=== PATIENT | female | born 1990 | race Caucasian/White ===

== ENCOUNTER 2017-09-28 14:38 | Outpatient (CLI) | payer OTHER ==
[~2017-09-28] VITALS: Ht 165.1 cm; Wt 208.0 kg
[~2017-09-28 14:38] MED LIST: PRENTAB26 PO
--- NOTE | 2017-09-28 16:47 | HISTORY & PHYSICAL EXAMINATION ---
DATE OF ADMISSION: 09/28/2017 HISTORY OF PRESENT ILLNESS: The patient is a 27-year-old G3, P1, due date 12/16/2017 making her at 28 weeks and 5 days. The patient is with di-di twins. She has had an unremarkable course, was seen today in the office by Dr. Kim. The patient had complained of possible wetness in her underwear. She was examined, Nitrazine and ferning were negative. Pelvic exam by Dr. Kim's exam, reports patient may be 3-4 cm with bulging membranes. The patient was given 1 dose of betamethasone and sent to labor and delivery. On arrival to labor and delivery, she had no shortness of breath, no chills, no fever. There was minimal contractions seen on the monitor. COURSE: Unremarkable except for history of di-di twin gestation. The patient has seen maternal medicine. Blood type is A negative and received RhoGAM on 09/28/2017. PAST MEDICAL HISTORY: History of a heart murmur as a child. PAST SURGICAL HISTORY: The patient has history of dental surgery. SOCIAL HISTORY: The patient denies tobacco, drug or alcohol use. 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 ALLERGIES: No known drug allergies. PHYSICAL EXAMINATION: GENERAL: Well-developed, well-nourished white female, in no acute distress. HEART: S1, S2, regular rhythm and rate. LUNGS: Clear to auscultation bilaterally. ABDOMEN: Gravid. Twin gestation pel; 2cm/50/-3 EXTREMITIES: No cyanosis, clubbing or edema. ASSESSMENT AND PLAN: A 27-year-old G3, P1 at 28 weeks and 5 days. The patient is seen in the office and found to have cervical dilation of 3-4 cm. She received 1 dose of betamethasone. She was here in labor and delivery with irregular contractions.her pelvic exam by me is 2/50/-3 Plan therefore is to admit patient for monitoring and a second dose of betamethasone. Will start pt with magnesium sulphate. As long as the patient continues to be stable, she will be kept in house, if she becomes unstable will consider transferring to [facility]. [facility]
[2017-09-28 16:53] LABS: BASO % 0.1 %; BASO ABS # 0.01 K/uL (0-0.2); EOS % 0.2 %; EOS ABS # 0.03 K/uL (0-0.5); IG# 0.06 K/uL (0.00-0.02); LYMPH % 9.1 %; LYMPH ABS # 1.18 K/uL (1.2-3.4); MEAN CELL VOLUME 85.1 fL (80-100); MEAN CORPUSCULAR HEMOGLOBIN 28.4 pg (25-34); MEAN CORPUSCULAR HGB CONC 33.3 g/dl (32-36); MEAN PLATELET VOLUME 10.4 fL (7.4-10.4); MONO % 2.2 %; MONO ABS # 0.28 K/uL (0.11-0.59); NEUT % 87.9 %; NEUT ABS # 11.45 K/uL (1.4-6.5); PLATELET COUNT 225 K/uL (130-400); RED CELL DISTRIBUTION WIDTH CV 13.3 % (11.5-14.5); RED CELL DISTRIBUTION WIDTH SD 40.9 fL (36.4-46.3); WHITE BLOOD COUNT 13.01 K/uL (4.8-10.8)
[2017-09-28] MEDS ORDERED: MAGNESIUM SULFATE 4GM / WTR 4 GM BAG ONE (17:01)
[2017-09-28] MEDS ORDERED: MAGNESIUM SULFATE 40GM / WTR 1,000 ML IV ONE (17:05)
[2017-09-28] MEDS ORDERED: MAGNESIUM SULFATE 4GM / WTR 4 GM BAG IV STA (17:15)
[2017-09-28 17:23] LABS: BLOOD UREA NITROGEN 7 mg/dl (7-18); CALCIUM 9.1 mg/dl (8.5-10.1); CARBON DIOXIDE 23 mmol/L (21-32); CREATININE 0.77 mg/dl (0.60-1.20); GLUCOSE 98 mg/dl (70-99); POTASSIUM 4.2 mmol/L (3.5-5.1); SODIUM 136 mmol/L (136-145)
[2017-09-28] MEDS: LACTATED RINGER'S 1000ML 1,000 ML IV SCH (17:36)
[2017-09-28 18:03] VITALS: Ht 165.1 cm; Wt 208.0 kg
[2017-09-28] MEDS ORDERED: TERBUTALINE SULFATE 1 MG/ML VIAL SQ PRN (20:45)
[2017-09-28] MEDS ORDERED: TERBUTALINE SULFATE 1 MG/ML VIAL ONE (20:48)
[2017-09-29] MEDS: LACTATED RINGER'S 1000ML 1,000 ML IV SCH (04:19)
[2017-09-29] MEDS ORDERED: PRENATAL VITAMIN TAB PO STA (08:49)
[2017-09-29] MEDS ORDERED: FERROUS SULFATE 325 MG TAB PO SCH (11:30)
[2017-09-29] MEDS ORDERED: MAGNESIUM SULFATE 40GM / WTR 1,000 ML IV ONE (11:57)
[2017-09-29] MEDS ORDERED: MAGNESIUM SULFATE 40GM/ WTR 1,000 ML BAG ONE (12:08)
== END 2017-09-29 12:30 | disposition short-term general hospital (02) ==
LOC: C.LD 14:38 → C.OPB 14:38
PROVIDERS: ATTEND Obstetrics & Gynecology
DX: O62.9 Abnormality of forces of labor, unspecified (principal); O30.043 Twin pregnancy, dichorionic/diamniotic, third trimester; Z3A.28 28 weeks gestation of pregnancy

== ENCOUNTER 2017-11-02 12:13 | Inpatient (IN) | payer OTHER ==
[~2017-11-02] VITALS: Ht 165.1 cm; Wt 79.5 kg
[2017-11-02] MEDS ORDERED: [UNRECOGNIZED DRUG - OTHER] (13:30)
[2017-11-02] MEDS ORDERED: LACTATED RINGER'S 1000ML 1,000 ML IV SCH ×3 (15:11→17:16)
[2017-11-02] MEDS ORDERED: CITRIC ACID/SODIUM CITRATE 15 ML UDC PO ONE (15:15)
[2017-11-02] MEDS ORDERED: CITRIC ACID/SODIUM CITRATE 15 ML UDC ONE (15:22)
[2017-11-02] MEDS ORDERED: FENTANYL CITRATE INJ 50 MCG/1 ML 2 ML VIAL ONE (15:28)
[2017-11-02] MEDS ORDERED: MoRPHine SULFATE PF 1 MG/ML 10 ML AMP/VIAL ONE (15:28)
[2017-11-02] MEDS ORDERED: CEFAZOLIN IV 2,000 MG in SYRINGE 0 ML IV SCH (15:30)
--- NOTE | 2017-11-02 15:31 | Progress Note ---
Progress Note Date of Service Nov 02, 2017. Progress Note Pt was schedules for tramsfer to [facility] Life fight turned aroud because of bad weather I have discussed this with pt pt is jasmine 2-3 mins and her ctx are increasing in intensity she has agreed to peeweeo c/sec here risk and complications of surgery discussed with pt consent is signed
--- NOTE | 2017-11-02 15:46 | HISTORY & PHYSICAL EXAMINATION ---
DATE OF ADMISSION: 11/02/2017 HISTORY OF PRESENT ILLNESS: The patient is a 27-year-old G3, P1, due date 12/16/2017, making her 33 weeks and 5 days. The patient has di/di twin . course has been unremarkable except for history of labor. She was seen at [facility] and admitted last week where she received betamethasone. The patient was then discharged home. She was about 3 cm dilated when she was discharged home. She was seen today in followup for routine care and exam by the physician showed she was 5 cm, 50% effaced and -3 station. She was then sent to labor and delivery. The patient does not feel any contractions on admission to labor and delivery, she had irregular contractions anywhere from 2-8 minutes apart. She received IV fluids. PAST MEDICAL HISTORY: History of heart murmurs. PAST SURGICAL HISTORY: Dental surgery. SOCIAL HISTORY: The patient denies tobacco, drug or alcohol use. ALLERGIES: No known drug allergies. 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 PHYSICAL EXAMINATION: GENERAL: Well-developed, well-nourished white female in no acute distress. HEART: S1, S2, regular rhythm and rate. ABDOMEN: Gravid with twins. heart rate is category 1 x2. PELVIC: On admission shows she is 5 cm, 50% effaced, and -3. EXTREMITIES: No cyanosis, clubbing or edema. ASSESSMENT AND PLAN: A 27-year-old G3, P1 at 32 weeks and 5 days with di/di twin . The patient has had labor. She was sent marked maternal age. She was sent to [place] where she received a bit of betamethasone last week and started benefitted. Today on a routine office exam, she was found to be 5-6 cm, 50% effaced, and -3. The patient is here labor and delivery, she is having irregular contractions. We have discussed the following options: Option #1 is the patient can be delivered here via because baby A is breech and baby B is cephalic as reported to me by Dr. Lancaster who saw the patient in the office this morning. If you deliver the babies here, the mother understand that there is a small possibility that infants will be transferred to [place] and that she and babies will be . Dr. Mac, the orthotic/prosthetic clinician is aware of that. Option #2 is that she could be transferred to [facility] where she will probably also be delivered as well. The advantage for that is that she will be with her babies. There is, however, a concern that patient could rupture during transit. . I have discussed that with the patient as well. The patient initially asked that she discussed this options with her spouse. I left her the room and later on came back and she has decided to go to [place] and rather deliver there. Once again, I have made aware of the risk of rupture of membranes in transit and with polyhydramnios the risk that the babies might have cord prolapse which can lead to other complications including demise. She still wanting to take the chance and deliver in [place] because it is important for her to be with her babies after delivery. I am therefore called and spoken to Dr. Cee at [facility] who has agreed to accept the transfer. MIKEY
[2017-11-02 15:50] LABS: BASO % 0.2 %; BASO ABS # 0.02 K/uL (0-0.2); EOS % 0.8 %; EOS ABS # 0.09 K/uL (0-0.5); HEMATOCRIT 36.2 % (37-47); HEMOGLOBIN 12.2 g/dL (12.0-16.0); IG# 0.06 K/uL (0.00-0.02); LYMPH ABS # 2.27 K/uL (1.2-3.4); MEAN CORPUSCULAR HEMOGLOBIN 28.6 pg (25-34); MEAN CORPUSCULAR HGB CONC 33.7 g/dl (32-36); MONO % 5.4 %; MONO ABS # 0.65 K/uL (0.11-0.59); NEUT % 74.1 %; NEUT ABS # 8.88 K/uL (1.4-6.5); PLATELET COUNT 204 K/uL (130-400); RED CELL DISTRIBUTION WIDTH CV 15.9 % (11.5-14.5); RED CELL DISTRIBUTION WIDTH SD 49.2 fL (36.4-46.3); WHITE BLOOD COUNT 11.97 K/uL (4.8-10.8)
[2017-11-02] MEDS ORDERED: MISOPROSTOL 200 MCG TAB ONE (16:14)
[2017-11-02] MEDS ORDERED: OXYTOCIN INJ 10 UNITS/ML VIAL ONE (16:18)
[2017-11-02] MEDS ORDERED: PHENYLEPHRINE HCL INJ 10 MG/ML VIAL ONE (16:18)
[2017-11-02] MEDS ORDERED: METHYLERGONOVINE MALEATE 0.2 MG/ML AMP ONE (16:19)
[2017-11-02] MEDS ORDERED: ONDANSETRON INJ 2 MG/ML 2 ML VIAL ONE (16:23)
[2017-11-02] MEDS ORDERED: NALOXONE HCL 0.4 MG/1 ML VIAL/CARP IV PRN (17:15)
[2017-11-02] MEDS ORDERED: NALOXONE HCL INJ 1 MG in SODIUM CHLORIDE 0.9% 1000ML 1,000 ML IV PRN (17:15)
[2017-11-02] MEDS ORDERED: NALOXONE HCL INJ 0.08 MG in SYRINGE 1.8 ML IV PRN (17:15)
[2017-11-02] MEDS ORDERED: SODIUM CHLORIDE 0.9% 1000ML 1,000 ML IV PRN (17:15)
[2017-11-02] MEDS ORDERED: NO NARCOTICS OR SEDATIVES SCH (17:15)
[2017-11-02] MEDS ORDERED: ONDANSETRON INJ 2 MG/ML 2 ML VIAL IV PRN (17:15)
[2017-11-02] MEDS ORDERED: LACTATED RINGER'S 1000ML 500 ML IV PRN (17:15)
[2017-11-02] MEDS ORDERED: DiphenhydrAMINE HCL 50 MG/ML VIAL IV PRN (17:15)
[2017-11-02] MEDS ORDERED: EpHEDrine SULFATE INJ 50 MG/ML AMP IV PRN (17:15)
[2017-11-02] MEDS ORDERED: MoRPHine SULFATE 2 MG/ML CARP IV PRN (17:15)
[2017-11-02] MEDS ORDERED: NALBUPHINE HCL INJ 10 MG/ML AMP IV PRN (17:15)
[2017-11-02] MEDS ORDERED: MoRPHine SULFATE PF 1 MG/ML 10 ML AMP/VIAL EPI SCH (17:15)
--- NOTE | 2017-11-02 17:16 | [facility] Post Operative Brief Note ---
Immediate Operative Summary Operative Date Nov 02, 2017. Pre-Operative Diagnosis Twin 34 weeks; laboring Post-Operative Diagnosis Twin 34 weeks; laboring Breech/breech presentation Procedure(s) Performed Primary Section for delivery of a live female child at 1608 and a live male child at [address] Easley Body And Frame Technician Surgeon(s) Dr. Ko Estimated Blood Loss 1000CC Findings See Below finding dictated Fluids (cc crystalloids) 1250 Specimens PLACENTA (EXAM) Drains nickerson cath Anesthesia Type Spinal Complication(s) none Disposition Disposition: L&D
--- NOTE | 2017-11-02 17:17 | Anesthesiology Progress Note ---
Anesthesia Post Op Note Date & Time Nov 02, 2017 at 17:16 Notes Mental Status: alert / awake / arousable, participated in evaluation Pt Amnestic to Procedure: Yes Nausea / Vomiting: adequately controlled Pain: adequately controlled Airway Patency, RR, SpO2: stable & adequate BP & HR: stable & adequate Hydration State: stable & adequate Neuraxial Anesthesia: was administered, sensory block is resolving Anesthetic Complications: no major complications apparent
[2017-11-02] MEDS ORDERED: OXYTOCIN INJ 20 UNITS in LACTATED RINGER'S 1000ML 1,000 ML IV SCH (17:30)
[2017-11-02] MEDS ORDERED: LANOLIN OINT EXT PRN (17:30)
[2017-11-02] MEDS ORDERED: MISOPROSTOL 200 MCG TAB PR ONE (17:30)
[2017-11-02] MEDS ORDERED: BENZOCAINE 20% AER SPR 82.5 GM CAN EXT PRN (17:30)
[2017-11-02] MEDS ORDERED: SUPERCREAM 0.870 % 15GM JAR EXT PRN (17:30)
[2017-11-02] MEDS ORDERED: MAGNESIUM HYDROXIDE SUSP 30 ML UDC PO PRN (17:30)
[2017-11-02] MEDS ORDERED: HYDROCORTISONE ACETATE 25 MG SUPP PR PRN (17:30)
[2017-11-02] MEDS ORDERED: SENNA 8.6 MG TAB PO PRN (17:30)
[2017-11-02] MEDS: KETOROLAC TROMETHAMINE 30 MG/ML VIAL IV. PRN (18:09)
[2017-11-02 18:31] VITALS: Ht 165.1 cm; Wt 79.5 kg
[2017-11-02] MEDS: DOCUSATE SODIUM 100 MG CAP PO SCH (20:00)
[2017-11-02] MEDS: SIMETHICONE 80 MG CHEW PO SCH (21:00)
[2017-11-02 21:20] VITALS: BP 111/72; PULSE 94; TEMP 36.4; O2SAT 98
[2017-11-02 22:20] VITALS: O2SAT 100
[2017-11-02 23:20] VITALS: O2SAT 98
[2017-11-02 23:40] VITALS: BP 110/72; PULSE 91; TEMP 37.1; O2SAT 98
[2017-11-03] VITALS (13 sets, daily range): BP systolic 96–136; BP diastolic 67–79; PULSE 82–93; TEMP 36.4–36.9; O2SAT 98–100
[2017-11-03] MEDS: KETOROLAC TROMETHAMINE 30 MG/ML VIAL IV. PRN ×2 (00:30→06:33)
[2017-11-03] MEDS ORDERED: CEFAZOLIN IV 2,000 MG in DEXTROSE 5% 50ML 50 ML IV SCH (06:00)
[2017-11-03] MEDS ORDERED: INFLUENZA VIRUS QUAD VACCINE 0.5 ML SYR IM. ONE (07:15)
[2017-11-03] MEDS ORDERED: INFLUENZA ADMINISTRATION CHARGE ONE (07:15)
[2017-11-03] MEDS: FERROUS SULFATE 325 MG TAB PO SCH (07:34)
[2017-11-03] MEDS: DOCUSATE SODIUM 100 MG CAP PO SCH ×2 (07:34→20:12)
[2017-11-03] MEDS: SIMETHICONE 80 MG CHEW PO SCH ×4 (07:34→20:13)
[2017-11-03 07:50] LABS: BASO % 0.2 %; BASO ABS # 0.02 K/uL (0-0.2); EOS % 0.5 %; EOS ABS # 0.06 K/uL (0-0.5); HEMATOCRIT 31.6 % (37-47); HEMOGLOBIN 10.6 g/dL (12.0-16.0); IG# 0.05 K/uL (0.00-0.02); LYMPH % 12.1 %; LYMPH ABS # 1.57 K/uL (1.2-3.4); MEAN CELL VOLUME 85.6 fL (80-100); MEAN CORPUSCULAR HEMOGLOBIN 28.7 pg (25-34); MEAN CORPUSCULAR HGB CONC 33.5 g/dl (32-36); MEAN PLATELET VOLUME 10.8 fL (7.4-10.4); MONO % 7.2 %; MONO ABS # 0.93 K/uL (0.11-0.59); NEUT % 79.6 %; NEUT ABS # 10.37 K/uL (1.4-6.5); PLATELET COUNT 163 K/uL (130-400); RED CELL DISTRIBUTION WIDTH SD 49.8 fL (36.4-46.3)
--- NOTE | 2017-11-03 07:58 | OPERATIVE REPORT ---
DATE OF OPERATION: 11/02/2017 INDICATION FOR SURGERY: This is a 27-year-old G3, P1, at 33 and 5 weeks, di/di twins, presented to labor and delivery in labor. She was 5-6 cm. The patient had been a week ago. On arrival to labor and delivery, she was having contractions, was in labor. An attempt to transfer to [facility] was unsuccessful because of the weather. Decision was, therefore, made to proceed with section here at [facility]. PREOPERATIVE DIAGNOSES: 1. Twin , dichorionic/diamniotic twins at 33 and 5 days. 2. labor. 3. Breech-breech presentation. POSTOPERATIVE DIAGNOSES: Same. PROCEDURE: Primary section. SURGEON: Be Easley MD. RESIDENTIAL LEASING AGENT: Agnes Ko MD. ESTIMATED BLOOD LOSS: 1000 mL IV FLUIDS: 1250 mL URINE: 150 mL clear urine at the end of the procedure. ANESTHESIA: Spinal. SPECIMEN: Placenta and cord blood. COMPLICATIONS: None. DISPOSITION: Stable to recovery room. FINDINGS: Two live infants, baby A was female in footling breech presentation so was baby B, baby B was a male. Details of infants are in the pediatric record. Placenta was examined and found to be di/di placentation as expected. Pelvic exam and abdominal exam were unremarkable. Both ovaries and adnexa appeared grossly normal. DESCRIPTION OF THE PROCEDURE: The patient was taken to the operating room where she was prepped and draped in normal sterile fashion, a timeout was called. A Pfannenstiel incision was made and carried down to the fascia with a scalpel. Fascia was incised in the midline and extended laterally on both sides. The fascia was sharply dissected off the rectus abdominus muscles superiorly and inferiorly. The mid section of the rectus abdominus muscle was identified and was bluntly . Peritoneum was identified, entered sharply. Once inside the abdomen, an Jaydon retractor was placed for abdominal retraction. The vesicouterine peritoneum was sharply dissected off the lower segment of the uterus using Metzenbaums scissors. A low transverse incision was made on the uterus and extended laterally on both sides with bandage scissors. Amniotomy was performed on baby A, baby A was footling breech and was delivered using breech maneuvers without difficulty. Cord was clamped and handed over to the pediatric team. Same procedure was performed on baby B, amniotomy was performed on baby B, baby B also was footling breech and was delivered without difficulty. Placenta was manually removed and sent to pathology for pathologic analysis. Uterus was exteriorized and cleared of all clots and debris. Uterus was closed in 2 layers using Vicryl. There was good hemostasis at the end of the closure. Copious amount of irrigation was used to irrigate the abdomen. The vesicouterine peritoneum was reapproximated using plain suture. The Jaydon retractor was at this point removed. Inspection of the incision on the uterus, abdomen and pelvis showed good hemostasis. The peritoneum was closed in a running fashion using plain suture. The rectus abdominus muscle was reapproximated using [id number]-[id number] plain suture. There was good hemostasis again at this point. The fascia was closed using Vicryl suture in a running fashion. Subcu space was reapproximated using plain suture. Skin was closed with 4-0 Monocryl. All instruments were removed from the abdomen and accounted for x2. The patient and babies are in recovery and doing well. I attest to the content of the Intraoperative Record and any orders documented therein. Any exception s are noted below.
--- NOTE | 2017-11-03 09:10 | Surgery Progress Note ---
Surgery Progress Note Date of Service Nov 03, 2017. Subjective Post OP Day: 1 + feeling well, + ambulating Objective Vital Signs: Date Time Temp Pulse Resp B/P (MAP) Pulse Ox O2 Delivery O2 Flow Rate FiO2 11/03/17 07:25 100 Room Air 11/03/17 07:25 18 100 11/03/17 07:25 36.9 93 18 96/67 (77) 100 Room Air 11/03/17 06:20 18 98 11/03/17 05:19 20 98 11/03/17 04:42 36.6 89 20 101/67 (78) 100 Room Air 11/03/17 04:20 20 100 11/03/17 02:20 18 99 11/03/17 01:20 16 98 11/03/17 00:20 20 99 11/02/17 23:40 98 Room Air 11/02/17 23:40 37.1 91 18 110/72 (85) 98 Room Air 11/02/17 23:20 18 98 11/02/17 22:20 20 100 11/02/17 21:20 98 Room Air 11/02/17 21:20 18 98 11/02/17 21:20 36.4 94 18 111/72 (85) 98 Room Air 11/02/17 21:20 98 Room Air General Appearance: no apparent distress Abdomen: non tender, non distended, soft Incision(s): clean, dry, intact Extremities: non-tender, normal inspection, no pedal edema Laboratory Results: Results Past 24 Hours Test 11/02/17 15:26 11/03/17 07:21 Range/Units White Blood Count 11.97 13.00 4.8-10.8 K/uL Red Blood Count 4.26 3.69 4.2-5.4 M/uL Hemoglobin 12.2 10.6 12.0-16.0 g/dL Hematocrit 36.2 31.6 37-47 % Mean Corpuscular Volume 85.0 85.6 80-100 fL Mean Corpuscular Hemoglobin 28.6 28.7 25-34 pg Mean Corpuscular Hemoglobin Concent 33.7 33.5 32-36 g/dl Platelet Count 204 163 130-400 K/uL Mean Platelet Volume 11.0 10.8 7.4-10.4 fL Neutrophils (%) (Auto) 74.1 79.6 % Lymphocytes (%) (Auto) 19.0 12.1 % Monocytes (%) (Auto) 5.4 7.2 % Eosinophils (%) (Auto) 0.8 0.5 % Basophils (%) (Auto) 0.2 0.2 % Neutrophils # (Auto) 8.88 10.37 1.4-6.5 K/uL Lymphocytes # (Auto) 2.27 1.57 1.2-3.4 K/uL Monocytes # (Auto) 0.65 0.93 0.11-0.59 K/uL Eosinophils # (Auto) 0.09 0.06 0-0.5 K/uL Basophils # (Auto) 0.02 0.02 0-0.2 K/uL RDW Standard Deviation 49.2 49.8 36.4-46.3 fL RDW Coefficient of Variation 15.9 16.0 11.5-14.5 % Immature Granulocyte % (Auto) 0.5 0.4 % Immature Granulocyte # (Auto) 0.06 0.05 0.00-0.02 K/uL Assessment & Plan regular diet POD#1 twins tent d/c in AM
[2017-11-03] MEDS ORDERED: DC INTRASPINAL MORPHINE SCH (09:50)
[2017-11-03] MEDS ORDERED: ONDANSETRON INJ 2 MG/ML 2 ML VIAL IV PRN (09:50)
[2017-11-03] MEDS ORDERED: DiphenhydrAMINE HCL 50 MG/ML VIAL IV PRN (09:50)
[2017-11-03] MEDS ORDERED: PROMETHAZINE HCL INJ 25 MG in SODIUM CHLORIDE 0.9% 50ML 50 ML IV PRN (09:50)
[2017-11-03] MEDS: IBUPROFEN 600 MG TAB PO PRN ×3 (12:28→21:03)
[2017-11-03] MEDS: OXYCODONE/ACETAMINOPHEN 5-325 TAB PO PRN ×3 (12:28→21:04)
[2017-11-03] MEDS ORDERED: BISACODYL 5 MG TABEC PO ONE (22:00)
[2017-11-04] MEDS: IBUPROFEN 600 MG TAB PO PRN ×3 (02:47→12:16)
[2017-11-04] MEDS: OXYCODONE/ACETAMINOPHEN 5-325 TAB PO PRN ×3 (02:47→12:16)
[2017-11-04 06:45] LABS: HEMATOCRIT 29.2 % (37-47)
[2017-11-04 07:30] VITALS: BP 123/78; PULSE 90; TEMP 36.7; O2SAT 98
[2017-11-04] MEDS: DOCUSATE SODIUM 100 MG CAP PO SCH (07:43)
[2017-11-04] MEDS: SIMETHICONE 80 MG CHEW PO SCH ×2 (07:43→12:16)
[2017-11-04] MEDS: FERROUS SULFATE 325 MG TAB PO SCH (08:00)
[2017-11-04] MEDS ORDERED: MTR600X PO (08:25)
[2017-11-04] MEDS ORDERED: OXYC-57 PO (08:25)
--- NOTE | 2017-11-04 08:26 | Discharge Instructions ---
Discharge Instructions Date of Service Nov 04, 2017. Admission Reason for Admission: Labor Discharge Discharge Diagnosis / Problem: S/P section Discharge Goals Goal(s): Routine recovery after Activity Recommendations Activity Limitations: per Instructions/Follow-up section . Instructions / Follow-Up Instructions / Follow-Up ACTIVITY RECOMMENDATIONS: * Gradual return to full activity over the next 2-3 weeks. * No lifting - nothing heavier than baby over the next 2-3 weeks. * Do not engage in vigorous exercise, sexual activity or sports until cleared by your physician. * Do not drive or operate any motorized equipment until cleared by your physician. * You may shower/bathe daily. BREAST CARE: If you are not breast feeding: * Wear a supportive bra 24 hours a day for one to two weeks. * Avoid stimulating your breasts and nipples as much as possible during the first few weeks after delivery. * When taking a shower, have the warm water hit your back, not breasts. * When your breasts feel full, apply ice packs. Usually three to four times a day helps ease the discomfort. * Take a mild pain medication (Tylenol/Motrin) when you are uncomfortable. If breast feeding: * Use breast milk to lubricate nipples. Lansinoh cream may be used for sore nipples. You do not need to remove cream prior to breast feeding. If using a different brand of cream, check the label for directions regarding removal of cream prior to nursing. * Wear a supportive bra. * If having problems with breasts or breast feeding, call a leadership development consultant or your health care provider. OVER THE COUNTER MEDICATION: * For discomfort or pain, you may use Acetaminophen (Tylenol), Ibuprofen (Advil ), or Naproxen (Aleve) following the package directions. * For constipation you may use Colace following the package directions. SPECIAL CARE INSTRUCTIONS: When you are discharged from the hospital, it is important for you to follow the instructions listed below: * During the first week at home, you should be able to care for yourself and your baby. In addition, the usual light household activities are encouraged. * Limit your activities to the way you feel. Do not try to clean the house or move furniture. Be sensible. * If you actively engage in sports and have done so up until the time of your delivery, you may resume these activities as soon as you feel able. This may take up to one month or even longer. Use good judgment. * Continue to take your vitamins for at least six weeks after the of your baby. * Your diet need not be limited unless you were on a special diet before your delivery. Breast-feeding mothers need around 2500 calories per day and at least 64-80 ounces of fluid per day (8 to 10 glasses). * You should eat foods from the four major food groups. Crash diets or fad diets are to be avoided. Eating lean meats, fresh fruits and vegetables, low-fat dairy products, high fiber foods and a regular exercise program, will help you get back to your pre- weight without putting your health at risk. * Constipation is sometimes a problem after delivery. Take a mild laxative as needed. If breast feeding, Milk of Magnesia is acceptable to use. You may use a suppository or Fleets enema if no episiotomy. * A daily shower or tub bath is suggested. Be sure to thoroughly and gently dry the perineum. * A bloody vaginal discharge will usually continue until around four weeks post . A small amount of bleeding may continue for as long as six weeks. Vaginal discharge changes from the bright red bleeding after delivery to pink then brownish and finally yellowish-pink before becoming white and disappearing. * Bleeding may increase with activity. Your first period may come in 4-8 weeks. If you are breast feeding, your period may be delayed even longer. * [place] (sex) can begin whenever both you and your partner feel comfortable and do not have any form of genital infection. It is recommended that you wait at least six weeks for internal and external healing to occur. If you have questions, please talk to your health care practitioner. A condom should be used to prevent infection and . * Foreplay, gentle intercourse and lubrication is very important the first several times to prevent pain. A water-based lubricant such as K-Y jelly or Astroglide may be used. * Tampons and/or Douching should be avoided until after six weeks check-up. * If you have RH negative blood and your baby is RH positive, you will receive RHOGAM by injection prior to discharge. The nurse will give you a card to keep with you that has the date and place that you received RHOGAM after delivery. * During your care, you had a Rubella screen done to check for the presence of rubella antibodies in your blood. If your test was negative, you will receive a Rubella vaccine prior to discharge. This vaccine may cause a fever, soreness at the injection site and flu-like symptoms. If these symptoms persist, notify your health care practitioner. is not advised for three months after a Rubella vaccine. * Verbalizes understanding of car seat law as reviewed with patient nursing. * Car Seat hand-out given and reviewed with patient by nursing. * Shaken baby information reviewed with patient by nursing. Call you doctor if: * Heavy bleeding (saturating several pads an hour) or passing clots the size of your fist. * A fever >101 degrees F (38.3 degrees C) on two occasions four hours apart and /or chills. * Unusual pain in the pelvic or vaginal areas. Pain should improve each day . * Call the doctor for any increased redness, drainage or swelling around the incision and any pain unrelieved by prescribed pain medication. * Any signs or symptoms of phlebitis (possible blood clots forming in the veins ): leg pain, warm, red or swollen area on leg. * "Baby Blues" lasting longer than two weeks. If you have any questions or concerns, call your health care practitioner at . FOLLOW-UP VISIT: * Incision check (staple removal) in 1 week. Please call doctor's office at to set up appointment. * Please call the office at to schedule a 6 week examination. It is important you keep this appointment. * It is important for you to make arrangements for either yearly or twice yearly check-ups thereafter. Current Hospital Diet Patient's current hospital diet: Regular OB Diet Discharge Diet Recommended Diet: Regular OB Diet Procedures Procedures Performed: Primary Section for delivery of a live female child at 1608 and a live male child at 1609 Pending Studies Studies pending at discharge: no Medical Emergencies . Who to Call and When: Medical Emergencies: If at any time you feel your situation is an emergency, please call 911 immediately. . Non-Emergent Contact Non-Emergency issues call your: Primary Care Provider, Aerosol Line Operator . . "Provider Documentation" section prepared by Yariel Lancaster. . VTE Core Measure Inpt VTE Proph given/why not?: Treatment not indicated [place] Drug Monitoring Program Search Results: patient reviewed within database, no issues identified
--- NOTE | 2017-11-04 08:28 | OB/GYN Progress Note ---
INSURANCE FOLLOW UP SPECIALIST Progress Note Date of Service Nov 04, 2017. Subjective conversation w/ patient, physical exam Ambulation: ambulating normally Voiding: no voiding problems Passing Gas: Yes Diet Tolerance: Regular Diet Lochia: Small Pain: 11/04 Notes: Doing well, no concerns. Pain well controlled. Tolerating regular diet. Ambulating without difficulty. Incision remains c/d/i/ Would like to go home today. Objective Vital Signs Date Time Temp Pulse Resp B/P (MAP) Pulse Ox O2 Delivery O2 Flow Rate FiO2 11/04/17 07:30 98 Room Air 11/04/17 07:30 36.7 90 18 123/78 (93) 98 Room Air 11/03/17 23:30 Room Air 11/03/17 23:30 36.6 86 20 113/74 (87) Room Air 11/03/17 16:00 16 98 11/03/17 16:00 Room Air 11/03/17 16:00 36.6 82 16 136/79 (98) 98 Room Air 11/03/17 12:30 36.4 92 18 102/68 (79) 100 Room Air 11/03/17 09:20 16 98 Physical Exam General Appearance: WELL-APPEARING Respiratory/Chest: chest non-tender, lungs clear Cardiovascular: regular rate, rhythm Abdomen: normal bowel sounds, soft Fundus: Firm Incision Description: Clean, Dry & Intact Extremities: normal range of motion, non-tender, no calf tenderness Laboratory Results Last 24 Hours Test 11/04/17 06:23 Hemoglobin 10.0 g/dL Hematocrit 29.2 % Assessment and Plan Post-Op Day Number: 2 Continue Routine Care: -D/C home today -F/U in 1 week for incision check.
[2017-11-04 12:25] VITALS: BP_DIAS 78; PULSE 90; TEMP 36.7
[2017-11-04] MEDS ORDERED: BISACODYL 10 MG SUPP PR PRN (17:30)
== END 2017-11-04 13:50 | disposition home or self-care (01) | DRG 765 ==
LOC: C.OPB 12:13 → C.LD 12:14 → C.OPB 15:14 → C.LD 15:14 → C.OBG 21:21
PROVIDERS: ADMIT Obstetrics & Gynecology; ATTEND Obstetrics & Gynecology
PROC: 10D00Z1 Extraction of Products of Conception, Low, Open Approach (ICD-10-PCS; principal; 2017-11-02 15:40)
DX: O60.14X1 Preterm labor third trimester with preterm delivery third trimester, fetus 1 (principal); O30.043 Twin pregnancy, dichorionic/diamniotic, third trimester; O60.14X2 Preterm labor third trimester with preterm delivery third trimester, fetus 2; Z3A.33 33 weeks gestation of pregnancy; O32.8XX1 Maternal care for other malpresentation of fetus, fetus 1; O32.8XX2 Maternal care for other malpresentation of fetus, fetus 2; Z37.2 Twins, both liveborn